=== PATIENT | male | born 1955 | race Caucasian/White ===

== ENCOUNTER → 2017-08-03 12:41 | Outpatient (CLI) | payer OTHER, SELFPAY ==
--- NOTE | 2017-08-03 11:30 | PROSBIL_PTH ---
PATIENT: CAT CHACKO LOC: [facility] U#:[id number] AGE/SX: 69/M ROOM: RE08/03/[address]: Dr. Nate Coelho MD : [id number] BED: DIS: SPEC #: [id number] RECD: 08/03/17 12:32 STATUS: STEWART ELLI #: [id number] ELEANOR: 08/03/17 11:[address]: Nate Coelho DEPT: SURGICAL PATHOLOGY RECD BY: Geoffrey Martinez ENTERED: 08/03/17 13:33 SP TYPE: PROST BX OT DR: Negin Healy PA-C Tissues: A - PROSTATE RIGHT B - PROSTATE RIGHT C - PROSTATE RIGHT D - PROSTATE LEFT E - PROSTATE LEFT F - PROSTATE LEFT Procedures: PROSTATE BX HEADER OPERATION: Prostate biopsy PRE-OP DIAGNOSIS: Elevated PSA TISSUE SUBMITTED: A - Right apex, B - Right mid, C - Right base, D - Left apex, E - Left mid, F - Left base MICROSCOPIC DIAGNOSIS A. Right prostate, apex, core biopsy: Prostatic tissue, negative for malignancy. Focal mild chronic inflammation. B. Right prostate, mid, core biopsy: Prostatic tissue, negative for malignancy. C. Right prostate, base, core biopsy: Prostatic tissue, negative for malignancy. D. Left prostate, apex, core biopsy: Prostatic tissue, negative for malignancy. Focal mild chronic inflammation and minimal acute inflammation. E. Left prostate, mid, core biopsy: Prostatic tissue, negative for malignancy. Focal atrophy. F. Left prostate, base, core biopsy: Prostatic tissue, negative for malignancy. Focal mild chronic inflammation. SJ:alla 08/04/17 MICROSCOPIC DESCRIPTION Slides are reviewed. GROSS DESCRIPTION A - Received is one container designated prostate, right apex. The specimen consists of two elongated fragments of light power-white soft tissue each measuring 1 cm in length and 0.1 cm in diameter. The specimen is totally submitted in one cassette. B - Received is one container designated prostate, right mid. The specimen consists of two elongated fragments of light power-white soft tissue each measuring 1.5 cm in length and 0.1 cm in diameter. The specimen is totally submitted in one cassette. C - Received is one container designated prostate, right base. The specimen consists of two elongated fragments of light power-white soft tissue each measuring 1 cm in length and 0.1 cm in diameter. The specimen is totally submitted in one cassette. D - Received is one container designated prostate, left apex. The specimen consists of two elongated fragments of light power-white soft tissue each measuring 1 cm in length and 0.1 cm in diameter. The specimen is totally submitted in one cassette. E - Received is one container designated prostate, left mid. The specimen consists of two elongated fragments of light power-white soft tissue each measuring 1 cm in length and 0.1 cm in diameter. The specimen is totally submitted in one cassette. F - Received is one container designated prostate, left base. The specimen consists of two elongated fragments of light power-white soft tissue each measuring 1 cm in length and 0.1 cm in diameter. The specimen is totally submitted in one cassette. / AM:alla 08/03/17 TC:5 CPT: 89666 x6
== END ==
PROVIDERS: Family Provider Family Medicine; PCP Family Medicine; Visit Provider Urology
DX: R97.20 Elevated prostate specific antigen [PSA] (principal)
CPT/HCPCS: 88305; G0416

== ENCOUNTER → 2018-08-25 13:59 | Outpatient (CLI) | payer OTHER, SELFPAY ==
[2018-08-19 13:01] VITALS: BMI 21.8
--- NOTE | 2018-08-25 14:08 | ECHOD_ITS ---
Version 2 Reason For Study: Bicuspic AV, AVR Procedure This was a 2D Doppler, Color Flow transthoracic echocardiogram. Exam performed in department. Left Ventricle Normal LV size. Left ventricular systolic function is normal. The estimated ejection fraction is 60 %. Stage 1 diastolic dysfunction. No regional wall motion abnormalities noted. Right Ventricle Normal RV size. Normal systolic function. Atria The left atrium is mildly enlarged. Normal right atrium. Mitral Valve Normal mitral valve. Mild (1+) eccentric mitral valve insufficiency. Tricuspid Valve Normal tricuspid valve. Aortic Valve Peak aortic valve gradient 47 mmHg. Mean aortic valve gradient 29 mmHg. Moderate aortic stenosis. Calculated aortic valve area (continuity equation) is 1.0 cm2. Mild (1+) aortic valve insufficiency. Bioprosthetic aortic valve. Pulmonic Valve Normal pulmonic valve. Great Vessels Normal aortic root. The pulmonary artery is normal size. Normal inferior vena cava. Pericardium/Pleural No pericardial effusion. MMode/2D Measurements & Calculations LVIDd: 5.3 cm IVSd: 1.4 cm LVOT diam: 2.2 cm LVIDs: 3.4 cm LVPWd: 1.1 cm LVOT area: 3.9 cm2 RVDd: 4.4 cm FS: 34.8 % Ao root diam: 3.2 cm LAV(MOD-bp): 70.4 ml LA A4 area: 21.6 cm2 LAV(MOD-bp) Indexed: 38.9 ml/m2 LAV(MOD-sp2): 69.8 ml LAV(MOD-sp4): 68.5 ml LA dimension(2D): 4.9 cm RA A4 area: 17.0 cm2 Doppler Measurements & Calculations MV E max naman: 46.8 cm/sec Lat Peak E' Naman: 9.4 cm/sec Med Peak E' Naman: 5.9 cm/sec MV A max naman: 60.6 cm/sec E/E' lat: 5.0 E/E' med: 7.9 MV E/A: 0.77 Ao V2 max: 344.2 cm/sec LV V1 max: 83.9 cm/sec SV(LVOT): 84.9 ml Ao max P.5 mmHg LV V1 max P.8 mmHg Ao V2 mean: 260.5 cm/sec LV V1 mean P.5 mmHg Ao mean P.4 mmHg LV V1 mean: 58.8 cm/sec Ao V2 VTI: 80.4 cm LV V1 VTI: 21.8 cm SYDNEE(I,D): 1.1 cm2 SYDNEE(V,D): 0.95 cm2 PA V2 max: 80.9 cm/sec TR max naman: 185.4 cm/sec TR max P.7 mmHg Interpretation Summary Normal LV size. Left ventricular systolic function is normal. The estimated ejection fraction is 60 %. Stage 1 diastolic dysfunction. Moderate aortic stenosis. Calculated aortic valve area (continuity equation) is 1.0 cm2. Compared to the previous echocardiogram from November 2016 the peak and mean gradients are mildly increased as well as the valve area being more narrow. It however remains within the moderate range. Ordering Physician: Yuriy^Florian^^^ Referring Physician: Negin Healy Performed By: Briseida Richard, MARY, RVT
== END ==
PROVIDERS: Family Provider Family Medicine; PCP Family Medicine; Referring Provider Internal Medicine Cardiovascular Disease; Visit Provider Internal Medicine Cardiovascular Disease
DX: I35.1 Nonrheumatic aortic (valve) insufficiency (principal); Z95.2 Presence of prosthetic heart valve
CPT/HCPCS: 93306

== ENCOUNTER → 2018-09-16 12:46 | Outpatient (CLI) | payer OTHER, SELFPAY ==
[2018-08-19 13:01] VITALS: BMI 21.8
--- NOTE | 2018-09-16 15:32 | PFTCOMP_ITS ---
COMPLETE PULMONARY FUNCTION TEST INTERPRETATION Brief HPI: Patient is a 63 year old male, currently under the care of myself, who presents to [facility] for complete pulmonary function tests secondary to diagnosis of bronchitis. Respiratory therapist reports good effort and reproducible results. Interpretation: Forced expiration spirometry shows no large airways obstructive ventilatory defect with an FEV1 of 114% predicted. There is no significant bronchodilator response by strict ATS criteria. Spirograms are of good quality and plateau normally. The respiratory flow volume loop shows a normal pattern. Lung volumes by body plethysmography show a normal total lung capacity at 6.98 L, 113% predicted. All other lung volumes are within normal limits. Diffusion capacity by carbon monoxide is elevated at 129% predicted. The airway resistance is slightly elevated. No previous pulmonary function tests were available for review. Impression: Normal pulmonary function test with possible stigmata of small airways disease. Quiescent asthma would be a consideration.
== END ==
PROVIDERS: Family Provider Family Medicine; PCP Family Medicine; Referring Provider Internal Medicine Critical Care Medicine; Visit Provider Internal Medicine Critical Care Medicine
DX: J47.9 Bronchiectasis, uncomplicated (principal)
CPT/HCPCS: 94060; 94726; 94729

== ENCOUNTER → 2018-11-01 13:40 | Outpatient (CLI) | payer OTHER, SELFPAY ==
[2018-08-19 13:01] VITALS: BMI 21.8
[2018-10-26 07:46] VITALS: BMI 22.1
--- NOTE | 2018-11-01 13:45 | CT_ITS ---
STUDY: CT CHEST WITHOUT CONTRAST REASON FOR EXAM: Male, 63 years old. Bronchiectasis RADIATION DOSAGE (If Supplied By Facility): CTDIvol = ( 10.15 ) mGy, DLP = ( 343.19 ) mGycm TECHNIQUE: Transaxial imaging was performed without the administration of intravenous contrast material. Coronal and sagittal reformatted images were created. Individualized dose optimization techniques were used for this CT. COMPARISON: None FINDINGS: The central airways are patent. There is mild bronchiectasis in the lower lobes. There is dependent atelectasis noted in the lungs. There are no pulmonary infiltrates or pleural effusions. There are no pulmonary nodules or masses. There is no pneumothorax. The heart and pericardium are within normal limits. The patient is status post sternotomy and aortic valve repair. There is no thoracic lymphadenopathy. There is no evidence of thoracic aortic aneurysm. Images through the upper abdomen demonstrate no significant abnormality. There are no destructive osseous lesions. CT/Chest without Contrast IMPRESSION: Mild bronchiectasis in the lower lobes. No pulmonary infiltrates or pleural effusions. Status post sternotomy and aortic valve repair. Electronically Signed: Ptaricio Das, at 14:43 EDT Tel , Service support ,
== END ==
PROVIDERS: Family Provider Family Medicine; PCP Family Medicine; Referring Provider Internal Medicine Critical Care Medicine; Visit Provider Internal Medicine Critical Care Medicine
DX: J47.9 Bronchiectasis, uncomplicated (principal)
CPT/HCPCS: 71250

== ENCOUNTER → 2018-12-02 13:22 | Outpatient (CLI) | payer OTHER, SELFPAY ==
[2018-12-02 12:33] VITALS: BMI 22.0
== END ==
PROVIDERS: Family Provider Family Medicine; PCP Family Medicine; Referring Provider Internal Medicine Critical Care Medicine; Visit Provider Internal Medicine Critical Care Medicine
DX: Z43.8 Encounter for attention to other artificial openings (principal)

== ENCOUNTER → 2019-10-10 07:54 | Outpatient (CLI) | payer OTHER, SELFPAY ==
[2019-09-21 14:55] VITALS: BMI 22.0
--- NOTE | 2019-10-10 08:00 | ECHOD_ITS ---
Reason For Study: Bicuspid AV- S/P AVR Procedure This was a 2D Doppler, Color Flow transthoracic echocardiogram. Exam performed in department. Left Ventricle Normal LV size. Left ventricular systolic function is normal. The estimated ejection fraction is 53 %. Stage 1 diastolic dysfunction. No regional wall motion abnormalities noted. Right Ventricle Normal RV size. Normal systolic function. Atria The left atrium is mildly enlarged. Normal right atrium. Mitral Valve Normal mitral valve. Mild (1+) eccentric mitral valve insufficiency. Tricuspid Valve Normal tricuspid valve. Mild tricuspid valve insufficiency. Pulmonary artery systolic pressure is 22 mmHg. Aortic Valve Peak aortic valve gradient 44 mmHg. Mean aortic valve gradient 22 mmHg. Mild aortic stenosis. Bioprosthetic aortic valve. Pulmonic Valve Normal pulmonic valve. Trivial pulmonic valve insufficiency. Great Vessels Normal aortic root. The pulmonary artery is normal size. Inferior vena cava collapse with sniff. Pericardium/Pleural No pericardial effusion. MMode/2D Measurements & Calculations LVIDd: 5.3 cm IVSd: 1.4 cm LVOT diam: 2.2 cm LVIDs: 3.2 cm LVPWd: 1.1 cm LVOT area: 3.7 cm2 RVDd: 3.9 cm FS: 40.0 % Ao root diam: 3.3 cm LAV(MOD-bp): 71.1 ml LVAd ap4: 36.7 cm2 LAV(MOD-bp) Indexed: 39.7 ml/m2 EDV(MOD-sp4): 132.0 ml LAV(MOD-sp2): 58.1 ml EDV(sp4-el): 130.5 ml LAV(MOD-sp4): 79.2 ml LVAs ap4: 22.3 cm2 ESV(MOD-sp4): 58.4 ml ESV(sp4-el): 51.3 ml EF(MOD-sp4): 55.8 % EF(sp4-el): 60.7 % SV(MOD-sp4): 73.7 ml SV(sp4-el): 79.1 ml LA A4 area: 23.4 cm2 LA dimension(2D): 4.6 cm RA A4 area: 16.6 cm2 Doppler Measurements & Calculations MV E max naman: 41.1 cm/sec Lat Peak E' Naman: 8.3 cm/sec Med Peak E' Naman: 4.9 cm/sec MV A max naman: 63.9 cm/sec E/E' lat: 5.0 E/E' med: 8.4 MV E/A: 0.64 Ao V2 max: 329.3 cm/sec LV V1 max: 139.9 cm/sec SV(LVOT): 122.2 ml Ao max P.5 mmHg LV V1 max P.8 mmHg Ao V2 mean: 217.9 cm/sec LV V1 mean P.2 mmHg Ao mean P.7 mmHg LV V1 mean: 96.6 cm/sec Ao V2 VTI: 76.4 cm LV V1 VTI: 32.7 cm SYDNEE(I,D): 1.6 cm2 SYDNEE(V,D): 1.6 cm2 PA V2 max: 88.2 cm/sec TR max naman: 218.0 cm/sec TR max P.1 mmHg Interpretation Summary Normal LV size. Left ventricular systolic function is normal. The estimated ejection fraction is 53 %. Bioprosthetic aortic valve. Mean aortic valve gradient 22 mmHg. Stage 1 diastolic dysfunction. Mild aortic stenosis. Ordering Physician: Florian Yan Referring Physician: Negin Healy Performed By: Yanely Hernandez RDCS
== END ==
PROVIDERS: PCP Family Medicine; Referring Provider Internal Medicine Cardiovascular Disease; Visit Provider Internal Medicine Cardiovascular Disease
DX: I35.0 Nonrheumatic aortic (valve) stenosis (principal); G47.33 Obstructive sleep apnea (adult) (pediatric); J47.9 Bronchiectasis, uncomplicated; E78.5 Hyperlipidemia, unspecified; I35.1 Nonrheumatic aortic (valve) insufficiency; Z95.2 Presence of prosthetic heart valve
CPT/HCPCS: 93306

== ENCOUNTER → 2019-11-10 15:18 | Outpatient (CLI) | payer OTHER, SELFPAY ==
[2019-10-27 09:02] VITALS: BMI 21.8
--- NOTE | 2019-11-10 15:29 | MRI_ITS ---
STUDY: MRI LUMBAR SPINE WITHOUT CONTRAST REASON FOR EXAM: Male, 64 years old. RADICULOPATHY, ABNORMAL XRAY F/U, REPORT SCANNED IN, XRAYS DONE AT OUTSIDE FACILITY TECHNIQUE: Standardized fat and water weighted pulse sequences were obtained in the sagittal and axial planes. COMPARISON: None FINDINGS: No visualized fracture line or compression deformity or marrow edema. No aggressive process is present. Normal lumbar lordosis. There is a dextroscoliosis of the lumbar spine. Normal conus medullaris that terminates at the L1 level. L1-2: Normal endplates. Normal disc height, hydration and morphology. Normal bilateral facet joints. Normal central canal and bilateral lateral recesses. Normal bilateral intervertebral neural foramina. L2-3: Normal endplates. Mild posterior disc space narrowing with minimal annular bulging and a small annular tear. Retrolisthesis of L2 on L3 of no more than 2 mm. Normal bilateral facet joints. Normal central canal and bilateral lateral recesses. Normal bilateral intervertebral neural foramina. L3-4: Normal endplates. Mild posterior disc space narrowing and annular bulging and a small superimposed left paracentral disc protrusion noted. Left lateral recess stenosis is present without demonstrated nerve root compression. Normal central canal and right lateral recess. Normal bilateral facet joints. Normal bilateral intervertebral neural foramina. L4-5: Normal endplates. Mild posterior disc space narrowing with minimal annular bulging is present. Normal bilateral facet joints. Normal central canal and bilateral lateral recesses. Normal bilateral intervertebral neural foramina. L5-S1: Normal endplates. Mild to moderate disc space narrowing is present resulting in the diffuse disc spur complex. Slight retrolisthesis of L5 on S1 of 2 to 3 mm. Normal bilateral facet joints. Normal central canal and bilateral lateral recesses. Normal bilateral intervertebral neural foramina. Normal visualized sacral ala. Normal visualized paraspinous soft tissue structures. MRI/Spine Lumbar (Routine) IMPRESSION: Multilevel degenerative changes, as described above. 1. Left lateral recess stenosis without demonstrated nerve root compression at the L3-L4 level secondary to a left paracentral disc protrusion Electronically Signed: Jake Guzmán MD at 22:15 EDT , Service support ,
== END ==
PROVIDERS: PCP Family Medicine; Referring Provider Family Medicine; Visit Provider Family Medicine
DX: R93.7 Abnormal findings on diagnostic imaging of other parts of musculoskeletal system (principal); M54.10 Radiculopathy, site unspecified
CPT/HCPCS: 72148

== ENCOUNTER → 2020-03-08 10:29 | Outpatient (CLI) | payer OTHER, SELFPAY ==
[2019-10-27 09:02] VITALS: BMI 21.8
[2020-03-10 10:28] LABS: H. PYLORI STOOL AG Negative (Negative)
== END ==
PROVIDERS: PCP Family Medicine; Referring Provider Internal Medicine Gastroenterology; Visit Provider Internal Medicine Gastroenterology
DX: R10.9 Unspecified abdominal pain (principal)

== ENCOUNTER → 2020-12-13 08:52 | Outpatient (CLI) | payer OTHER, SELFPAY ==
[2019-10-27 09:02] VITALS: BMI 21.8
--- NOTE | 2020-12-13 08:55 | ECHOD_ITS ---
Reason For Study: VALVE REPLACEMENT EVAL Procedure This was a 2D Doppler, Color Flow transthoracic echocardiogram. The study was technically difficult. PT had difficulty lying in left lateral decubitus position. Exam performed in department. Left Ventricle Normal LV size. Left ventricular systolic function is lower limits of normal. The estimated ejection fraction is 50 %. Stage 1 diastolic dysfunction. No regional wall motion abnormalities noted. Right Ventricle Normal RV size. Normal systolic function. Atria The left atrium is mildly enlarged. Normal right atrium. Mitral Valve Normal mitral valve. Tricuspid Valve Normal tricuspid valve. Aortic Valve Peak aortic valve gradient 38 mmHg. Mean aortic valve gradient 20 mmHg. Mild aortic stenosis. Bioprosthetic aortic valve. Great Vessels Normal aortic root. The pulmonary artery is normal size. Normal inferior vena cava. Pericardium/Pleural No pericardial effusion. MMode/2D Measurements & Calculations LVIDd: 5.3 cm IVSd: 1.2 cm LVOT diam: 2.2 cm LVIDs: 3.5 cm LVPWd: 0.94 cm LVOT area: 3.8 cm2 RVDd: 4.1 cm FS: 35.3 % Ao root diam: 3.5 cm LAV(MOD-bp): 94.6 ml LA A4 area: 26.1 cm2 LA dimension: 4.5 cm LAV(MOD-bp) Indexed: 52.1 ml/m2 LAV(MOD-sp2): 84.6 ml LAV(MOD-sp4): 95.9 ml RA A4 area: 18.3 cm2 Time Measurements MV dec time: 0.19 sec Doppler Measurements & Calculations MV E max naman: 49.8 cm/sec Lat Peak E' Naman: 10.0 cm/sec Med Peak E' Naman: 5.9 cm/sec MV A max naman: 67.2 cm/sec E/E' lat: 5.0 E/E' med: 8.5 MV E/A: 0.74 Ao V2 max: 306.0 cm/sec LV V1 max: 141.6 cm/sec SV(LVOT): 127.2 ml Ao max P.5 mmHg LV V1 max P.0 mmHg Ao V2 mean: 209.8 cm/sec LV V1 mean P.3 mmHg Ao mean P.6 mmHg LV V1 mean: 99.0 cm/sec Ao V2 VTI: 71.1 cm LV V1 VTI: 33.4 cm SYDNEE(I,D): 1.8 cm2 SYDNEE(V,D): 1.8 cm2 PA V2 max: 98.4 cm/sec TR max naman: 224.2 cm/sec TR max P.1 mmHg ECHO/Echo Complete Interpretation Summary Normal LV size. Left ventricular systolic function is lower limits of normal. The estimated ejection fraction is 50 %. Stage 1 diastolic dysfunction. Mean aortic valve gradient 20 mmHg. Mild aortic stenosis. Compared to the previous the gradients are essentially the same across the aort ic valve. Ordering Physician: Florian Yan Referring Physician: Negin Healy Performed By: Briseida Richard, MARY, RVT
== END ==
PROVIDERS: PCP Family Medicine; Referring Provider Internal Medicine Cardiovascular Disease; Visit Provider Internal Medicine Cardiovascular Disease
DX: I35.2 Nonrheumatic aortic (valve) stenosis with insufficiency (principal); Z95.2 Presence of prosthetic heart valve; T82.857A Stenosis of other cardiac prosthetic devices, implants and grafts, initial encounter; E78.5 Hyperlipidemia, unspecified; G47.33 Obstructive sleep apnea (adult) (pediatric); J47.9 Bronchiectasis, uncomplicated
CPT/HCPCS: 93306

== ENCOUNTER → 2022-04-08 | Outpatient (CLI) | payer MEDICARE, SELFPAY ==
--- NOTE | 2022-04-08 14:35 | ECHOD_ITS ---
Reason For Study: PRE-OP Procedure This was a 2D Doppler, Color Flow transthoracic echocardiogram. Exam performed in department. Left Ventricle Normal LV size. Left ventricular systolic function is normal. The estimated ejection fraction is 55 %. Stage 1 diastolic dysfunction. No regional wall motion abnormalities noted. Right Ventricle Normal RV size. Normal systolic function. Atria Normal left atrium. Normal right atrium. Mitral Valve Normal mitral valve. Tricuspid Valve Normal tricuspid valve. Mild tricuspid valve insufficiency. Aortic Valve Mild focal aortic valve thickening. Peak aortic valve gradient 56 mmHg. Mean aortic valve gradient 33 mmHg. Mild to moderate aortic stenosis. Mild (1+) aortic valve insufficiency. Normal prosthetic aortic valve. Pulmonic Valve Normal pulmonic valve. Great Vessels Normal aortic root. The pulmonary artery is normal size. Normal inferior vena cava. Pericardium/Pleural No pericardial effusion. MMode/2D Measurements & Calculations LVIDd: 6.1 cm IVSd: 1.1 cm LVOT diam: 2.0 cm LVIDs: 4.4 cm LVPWd: 1.1 cm LVOT area: 3.0 cm2 RVDd: 3.0 cm FS: 28.1 % Ao root diam: 3.4 cm LAV(MOD-bp): 68.3 ml LVAd ap4: 55.8 cm2 LAV(MOD-bp) Indexed: 41.7 ml/m2 LVLd ap4: 9.5 cm LAV(MOD-sp2): 61.9 ml EDV(MOD-sp4): 267.3 ml LAV(MOD-sp4): 65.8 ml EDV(sp4-el): 277.4 ml LVAs ap4: 32.2 cm2 LVLs ap4: 7.9 cm ESV(MOD-sp4): 111.6 ml ESV(sp4-el): 111.1 ml EF(MOD-sp4): 58.2 % EF(sp4-el): 59.9 % SV(MOD-sp4): 155.7 ml SV(sp4-el): 166.3 ml Aortic Valve Planimetry: 1.1 cm2 LA A4 area: 20.1 cm2 LA dimension(2D): 3.8 cm RA A4 area: 16.0 cm2 Time Measurements MV dec time: 0.32 sec Doppler Measurements & Calculations MV E max naman: 44.1 cm/sec Lat Peak E' Naman: 9.4 cm/sec Med Peak E' Naman: 8.9 cm/sec MV A max naman: 63.6 cm/sec E/E' lat: 4.7 E/E' med: 5.0 MV E/A: 0.69 Ao V2 max: 373.8 cm/sec AI max naman: 428.1 cm/sec LV V1 max: 113.6 cm/sec Ao max P.0 mmHg AI max P.3 mmHg LV V1 max P.2 mmHg Ao V2 mean: 272.1 cm/sec LV V1 mean P.8 mmHg Ao mean P.3 mmHg AI dec slope: 279.1 cm/sec2 LV V1 mean: 78.7 cm/sec Ao V2 VTI: 93.2 cm AI P1/2t: 449.2 msec LV V1 VTI: 28.7 cm AV (velocity ratio): 0.31 SYDNEE(I,D): 0.92 cm2 SYDNEE(V,D): 0.91 cm2 SV(LVOT): 86.2 ml PA V2 max: 85.7 cm/sec TR max naman: 202.7 cm/sec TR max P.4 mmHg ECHO/Echo Complete Interpretation Summary Normal LV size. Left ventricular systolic function is normal. The estimated ejection fraction is 55 %. Stage 1 diastolic dysfunction. Mean aortic valve gradient 33 mmHg. Mild (1+) aortic valve insufficiency. Normal prosthetic aortic valve. Mild to moderate aortic stenosis. Ordering Physician: Santana Kessler Referring Physician: ASAD FERNANDES Performed By: Shawna Tucker RDCS
== END | disposition home or self-care (01) ==
PROVIDERS: PCP Family Medicine; Referring Provider Surgery; Visit Provider Surgery
DX: T82.857A Stenosis of other cardiac prosthetic devices, implants and grafts, initial encounter (principal); I35.2 Nonrheumatic aortic (valve) stenosis with insufficiency; Z95.2 Presence of prosthetic heart valve
CPT/HCPCS: 93306

== ENCOUNTER 2022-04-09 05:41 | Day surgery (SDC) | payer MEDICARE, SELFPAY ==
--- NOTE | 2022-04-03 11:35 | EKG12_ITS ---
Test Reason : PREOP Blood Pressure : / mmHG Vent. Rate : 062 BPM Atrial Rate : 062 BPM P-R Int : 116 ms QRS Dur : 148 ms QT Int : 444 ms P-R-T Axes : 017 -12 006 degrees QTc Int : 450 ms Normal sinus rhythm Right bundle branch block Abnormal ECG Confirmed by VLADISLAV ANDINO, VIVIAN ([id number]), health editor MICHELLE BOO ([id number]) on 04/04/2022 10:37:06 AM Referred By: MUMTAZ Confirmed By:BRENT LOOMIS MD
[2022-04-03 12:53] LABS: Hematocrit 39.8 % (40-54); Hemoglobin 13.3 g/dL (13.0-16.5); Mean Corp Hgb Conc 33.4 g/dL (32-36); Mean Corpuscular Hgb 31.7 pg (27.0-32.0); Mean Corpuscular Volume 94.8 fL (80-94); Mean Platelet Vol. 12.2 fl (6.2-12.0); Platelet Count 139 K/mm3 (150-450); RBC Distribution Width CV 12.5 % (11.6-14.6); RBC Distribution Width SD 43.5 fl (35.1-43.9)
[2022-04-03 13:13] LABS: Anion Gap 4 (5-15); BUN 15 mg/dL (7-18); BUN/Creat Ratio 13.8 RATIO (10-20); Chloride 108 mmol/L (98-107); Creatinine, Serum 1.09 mg/dL (0.70-1.30); EST Glomerular Filtration Rate 72 mL/min (>60); Est Glom Filt Rate - Afr Amer 87 mL/min (>60); Glucose 126 mg/dL (74-106); Potassium 3.9 mmol/L (3.5-5.1); Sodium Level 141 mmol/L (136-145)
[2022-04-09] VITALS (10 sets, daily range): BP systolic 88–146; BP diastolic 44–72; PULSE 55–74; RESP 15–16; TEMP 36.6–37.2; O2SAT 95–100; BMI 23.5
--- NOTE | 2022-04-09 06:35 | DCINST_ITS ---
Discharge Instructions Procedure General Surgery Diet Discharge Diet: Light diet - advance as tolerated (if you have questions about your diet instructions, please talk to you doctor.) Activity Discharge Activity: May Not Drive (for 3-5 days or while taking narcotic pain medicine.) May shower in (days): 1 Lifting Restrictions: 10 pounds Dressing / Incision Call your doctor if your incision/area has: Continuous Slow Oozing, Sudden Increased Bleeding, Increased Pain/ Swelling, Increased Redness and Foul Smelling Discharge Call your doctor if you observe: Fever of 101 or Higher Suture Line Care: Avoid Pulling/Pushing and Avoid Pinching/Bending Additional Dressing/Incision Instructions:: Change or remove dressing in 4 days. Leave steri-strips in place for 1 week. Follow Up Care Please Follow Up With: Santana Kessler MD When: Call [phone] to make an appointment to be seen in about 10 days. Test Results: Test results from this visit will be discussed in further detail at your follow- up appointment, if applicable. Discharge Plan Admission Attending Provider: Santana Kessler Primary Care Provider: Negin Healy Discharge Orders/Prescriptions Prescriptions: No Action cholecalciferol (vitamin D3) 25 mcg (1,000 unit) capsule 1,000 unit PO DAILY sertraline 25 mg tablet 100 mg PO DAILY memantine 10 mg tablet 10 mg PO DAILY tamsulosin [Flomax] 0.4 mg capsule 0.4 mg PO QHS Qty: 30 0RF Other Ambulatory Orders: 12 Lead EKG (Routine) Timeframe: [id number] Location: None Selected Ordered By: Dr. Nelson Donohue Referrals / Follow Up: Negin Healy PA-C [Primary Care Provider] - Disposition Disposition (needs filled in before D/C Order can be placed): Home, Self Care
--- NOTE | 2022-04-09 06:35 | PCM.HP.BLA ---
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 AK (actinic keratosis) Alzheimer disease Anxiety Apnea Benign prostatic hyperplasia (BPH) with post-void dribbling Bicuspid aortic valve Bronchiectasis Chronic sinusitis Elevated PSA Essential (primary) hypertension Excessive cerumen in both ear canals GERD (gastroesophageal reflux disease) Hyperlipidemia Memory loss Nonrheumatic aortic (valve) stenosis with insufficiency TOMAS (obstructive sleep apnea) Prosthetic aortic valve stenosis Surgical History? History of aortic valve replacement (11/05/06) History of herniorrhaphy History of prostate biopsy Family History? Father Diabetes HypertensionMother Hypertension Social History?(Updated 03/20/22 @ 13:32 by Joselin Lynn) adopted:? No household members:? spouse housing:? house current occupational status:? retired Smoking Status:? Never smoker alcohol intake:? current alcohol intake frequency: 0-2 drinks per day Alcohol type: beer details:? 3 beers daily per substance use type:? marijuana caffeine:? No what type of physical activity do you participate in:? running and yoga HPI HPI HPI: 66-year-old gentleman.? He presents with his with concerns about a month history of bulge in the left groin.? Primary care provider is Priyanka Healy PA-C.? Surgical consultation recommended a written copy much of a consult and recommendations will return to her.? The patient does not have a specific history of accident.? There is been a slight change of bowel habit.? No bright red blood per rectum or melena though.? The hernia still is reducible.? He has history of a previous right inguinal herniorrhaphy approximately 1997. He has had a aortic valve replacement in the past.? He is not on any anticoagulants. He does have nocturia x3.? By report he has seen urologist Dr. Coelho.? The patient's not on tamsulosin at this time. Patient does have dementia but it started perhaps as early as 2011.? He otherwise continues to enjoy his is rather stable quality of life.? The denies any recent acute deterioration. ROS General General: No weight change, appetite, fatigue, colon cancer, breast cancer or weakness HEENT HEENT: No difficulty swallowing, eye injury, eye surgery, swollen glands or hoarseness Endo Endocrine: No thyroid disease, diabetes mellitus, thyroid cancer, Hair loss, heat intolerance or cold intolerance Skin Skin: Yes changing moles; No rash Breast Breast: No left breast lump, right breast lump, nipple discharge, breast pain, abnormal mammogram, abnormal US or breast enlargement Musc Musculoskeletal: No back problems, arthritis, rheumatoid arthritis, gout or joint pain Cardio Cardiovascular: Yes high blood pressure; No murmur, pacemaker, heart disease, atrial fibrillation, heart attack, heart stent, palpitations, shortness of breat with exertion or chest pain Additional Details: AV replacement (congenital) 2006 Psych Psychiatric: Yes depression and anxiety; No hearing voices Resp Respiratory: No shortness of breath, Yes sleep apnea, No cough, No COPD, No asthma, No emphysema and No wheezing Gastro Gastrointestinal: No abdominal pain, No nausea or vomiting, No diarrhea, No constipation, No blood in stool, No acid reflux, No hemorrhoids, No ulcers, No gallbladder problem and No black,tarry stools Petr Hematologic: No blood thinners, No blood disorders, No bleeding, No anemia and No blood clots Neuro Neurologic: No system reviewed and no additional complaints, except as documented, No as per HPI, No abnormal gait, No abnormal hearing, No abnormal movements, No abnormal speech, No behavioral changes, No burning sensations, No confusion, No convulsions, No disequilibrium, No dizziness, No localized weakness, No frequent falls, No headache(s), No lack of coordination, No loss of vision, No memory loss, No numbness, No other visual disturbances, No radicular pain, No restless legs, No sensory deficit, No syncope, No tingling, No tremor(s), No weakness and No other (Dementia) Exam Const General: cooperative Other: Not able to provide muchIs awake and alert to his history this is a provided by his .? He is able to move but somewhat stiffly HENMT Head: normal to inspection Eyes General: appearance normal, both eyes and all related structures Chest Chest palpation & inspection: normal inspection of the chest Resp Effort & Inspection: normal respiratory effort Cardio Rate: regular rate Rhythm: regular rhythm GI Palpation: soft and no hepatosplenomegaly Other: Well-healed transverse incision right groin.? Testicles are descended bilaterally.? Palpable bowel loop within the left inguinal hernia but still reducible when the patient is supine Skin General: no rashes or lesions noted Neuro General: patient alert and patient awake Extrem General: no calf tenderness Psych Appearance: grossly normal Assessment and Plan Assessment and Plan (1) Hernia: ? ? ? Medications: New tamsulosin (Flomax) 0.4 mg? PO QHS 30 caps 0RF ? ? Plan Because of the patient's cognitive problems I believe he is actually at more risk keeping the hernia that having it fixed.? He may not recognize incarceration or be able to detect the symptoms and correlate them with his hernia.? His dementia by report has been reasonably stable.? There still remains a quality of life.? I think most pertinent is that I believe we can accomplish this with simple monitored anesthesia care and local anesthetic.? I would anticipate a Loco left inguinal herniorrhaphy which is done with mesh.? I have described the technique, benefit, risk, alternatives.? Although no guarantees of success have been offered I do believe that performing this an elective setting and avoiding general anesthesia would be much in his favor rather than potentially allowing this to become a surgical emergency. Because of the patient's nocturia I do recommend initiating him on tamsulosin therapy 0.4 mg nightly.? I have cautioned the patient and that postoperative urinary tension is possible and then he would require urinary catheter.? They are aware and willing to initiate the tamsulosin therapy. Patient and his have had an opportunity to ask and have questions answered.? They presented to the office already and agreement that they wanted to proceed repair and were appreciative that we we will consider assisting them with this. I appreciate the opportunity of assisting with his surgical care Copy: Negin Kessler M.D., F.A.C.S. I have examined the patient and the H&P has been reviewed. There are no clinical changes since date of exam. Santana Kessler M.D., F.A.C.S.
[2022-04-09] MEDS: Lactated Ringers 1,000 ML 15 ML IV (06:43)
[2022-04-09] MEDS: Tamsulosin HCl 0.4 MG Capsule PO (06:51)
[2022-04-09] MEDS: Cefazolin 2 GM in 0.9% Normal Saline 100 ML IV (07:25)
--- NOTE | 2022-04-09 08:35 | PCM.OPRPT ---
Report of Operation Date of Procedure: 04/09/22 Pre-Operative Diagnosis: Left inguinal hernia Post-Operative Diagnosis: Indirect left inguinal hernia Surgery/Procedure Performed:: Loco left inguinal herniorrhaphy Bard preshaped mesh keyhole lot H UGT 04/27/2008, reference [id number], expiry date 10/15/2026 Description of Surgical Findings:: Timeout informed consent was obtained. 66-year-old gentleman was taken to the operating placed upon the table underwent monitored anesthesia care Ancef 2 g given intravenously the left groin was sterilely prepped and draped 1% lidocaine mixed 50-50 with 0.25% Marcaine was used as a local anesthetic. Throughout the procedure a total of 35 cc was used. Local was instilled a transverse incision was made in the left groin sharp dissection carried down through the subcutaneous tissues hemostasis was obtained with electrocautery the external bleak was identified incised along with his fascia inguinal nerve identified and protected circumferential control was obtained of the cord structures there was quite a bit of induration the sac was identified it was carefully meticulously dissected free somewhat of a cord lipoma it was then inverted the direct space was then dissected free to the pubic tubercle transversalis fascia was then approximated from the pubic tubercle to the internal ring using a running 3-0 Ethibond good approximation and reduction of the hernia was achieved the Bard preshaped keyhole mesh was placed around the internal ring secured to itself with 3-0 Ethibond the tails were trimmed and then placed beneath the external oblique the mesh was secured in place overlying the pubic tubercle of the shelving edge of Poupart's and the aponeurosis of the internal and external bleak with interrupted 3-0 Ethibond sutures very nice positioning was achieved. Inguinal nerve then protected back the external bleak approximated with a running 3-0 Vicryl. Subdermal tissues approximated and up to 3-0 Vicryl skin edges approximated with a running subicular 4 Monocryl Steri-Strips Telfa OpSite dressings applied sponge and instrument and needle counts were reported to the surgeon to be correct Specimens none. Drains none. Blood loss minimal. The patient was taken to the recovery room in satisfied condition without apparent complication Santana Kessler M.D., F.A.C.S. Surgeon: Santana Kessler Type of Anesthesia: Local MAC Anesthesiologist: Judy Mendoza
[2022-04-09] MEDS: Lidocaine 1% (30 ml sdv) 30 ML Vial (08:37)
[2022-04-09] MEDS: Bupivacaine 0.25% 30 ML Vial (08:37)
== END 2022-04-09 10:50 | disposition home or self-care (01) ==
LOC: SDC 05:44 → AC 05:46
PROVIDERS: Anesthesiology; PCP Family Medicine; Referring Provider Surgery; Visit Provider Surgery
PROC: (CPT 49505; principal; 2022-04-09 07:15)
DX: K40.90 Unilateral inguinal hernia, without obstruction or gangrene, not specified as recurrent (principal); F02.80 Dementia in other diseases classified elsewhere, unspecified severity, without behavioral disturbance, psychotic disturbance, mood disturbance, and anxiety; G30.9 Alzheimer's disease, unspecified; I10 Essential (primary) hypertension; E78.5 Hyperlipidemia, unspecified; G47.33 Obstructive sleep apnea (adult) (pediatric); Q23.1 Congenital insufficiency of aortic valve; Z99.89 Dependence on other enabling machines and devices; F12.90 Cannabis use, unspecified, uncomplicated
CPT/HCPCS: 49505; 36415; 80048; 85027; 93005; J7120; C1781; J2405